=== PATIENT | female | born 1980 | race Caucasian/White ===

== ENCOUNTER → 2024-03-04 07:59 | Outpatient (REF) | payer BC, SELFPAY | LOC: HWWDC 07:59 | PROVIDERS: ATTENDING PHYSICIAN Obstetrics & Gynecology; FAMILY PHYSICIAN Nurse Practitioner Adult Health | DX: Z12.31 Encounter for screening mammogram for malignant neoplasm of breast (principal) | CPT/HCPCS: 77063; 77067 ==

== ENCOUNTER → 2025-03-07 06:49 | Outpatient (REF) | payer BC, SELFPAY | LOC: HWWDC 06:49 | PROVIDERS: ATTENDING PHYSICIAN Nurse Practitioner Adult Health | DX: Z12.31 Encounter for screening mammogram for malignant neoplasm of breast (principal) | CPT/HCPCS: 77063; 77067 ==

== ENCOUNTER → 2025-03-18 08:33 | Outpatient (REF) | payer BC, SELFPAY | LOC: WDC 08:33 | PROVIDERS: ATTENDING PHYSICIAN Nurse Practitioner Adult Health | DX: R92.8 Other abnormal and inconclusive findings on diagnostic imaging of breast (principal) | CPT/HCPCS: 76642 ==